=== PATIENT | male | born 1980 | race Asian ===

== ENCOUNTER 2017-11-04 17:36 | Emergency (ER) | payer SELFPAY ==
[~2017-11-04] VITALS: Ht 175.3 cm; Wt 74.8 kg
[2017-11-04] MEDS ORDERED: CEFAZOLIN 1 GM in IV D5W 50 ML IV ONE (18:00)
--- NOTE | 2017-11-04 20:05 | NUR ---
Salvador DIAZ NP IS AT THE BEDSIDE SUTURING PT'S LAC.
[2017-11-04] MEDS ORDERED: LIDOCAINE 2% 20 ML MDV ONE (20:06)
--- NOTE | 2017-11-04 20:35 | NUR ---
ANCEF STARTED IN 20G LAC IV BY Salvador DIAZ NP.
[2017-11-04] MEDS ORDERED: IBUPROFEN 400 MG TABLET ONE (20:47)
[2017-11-04] MEDS ORDERED: IBUPROFEN 400 MG TABLET PO ONE (21:00)
--- NOTE | 2017-11-04 21:23 | NUR ---
RUE SPLINT IN PROGRESS AT THE BEDSIDE. PT IS REC'ING A LONG ARM POSTERIOR THUMB SPICA ORTHO GLASS SPLINT.
--- NOTE | 2017-11-04 21:29 | NUR ---
PT REC'D 3" ORTHOGLASS LONG ARM POSTERIOR THUMB SPICA SPLINT.
--- NOTE | 2017-11-04 21:32 | NUR ---
Patient discharged to home in stable condition. Written and verbal after care instructions given. Patient verbalizes understanding of instruction AND RX. PT AMBULATED OUT WITH A STEADY GAIT. VSS.
[2017-11-04 21:34] VITALS: BP 128/78
== END 2017-11-04 21:34 | disposition home or self-care (01) ==
LOC: ER 17:40 → EDSEX 17:40 → ER 21:34
DX: S61.411A Laceration without foreign body of right hand, initial encounter (principal); S62.001A Unspecified fracture of navicular [scaphoid] bone of right wrist, initial encounter for closed fracture; V49.9XXA Car occupant (driver) (passenger) injured in unspecified traffic accident, initial encounter; Y93.89 Activity, other specified; Y92.89 Other specified places as the place of occurrence of the external cause; Y99.8 Other external cause status
CPT/HCPCS: 12002; 29125; 73110 ×2; 73130 ×2; 96365; 99284; A4606; A6402; J0690; J3490; J7030; J7060; Z7610